=== PATIENT | male | born 1940 | race Caucasian/White ===

== ENCOUNTER → 2022-03-17 | Day surgery (SDC) | payer MEDICARE ==
[~2022-03-17] VITALS: Ht 170.2 cm; Wt 52.9 kg
[~2022-03-17] MED LIST: ALPR0.5T6 PO; AMLO-265 PO; BACL10TA PO; CITA20TA9 PO; HYDR-2769 PO; IV RINGERS,LACTATED 1000ML 1,000 ML IV SCH; LIDOCAINE 2% PF 5 ML VIAL. ONE; MIRT-7 PO; OMEP20CA16 PO; PROPOFOL 10 MG/ML (20ML) VIAL. IV ONE; TRAZ-118 PO; ZOLP10TA4 PO
[2022-03-17 09:11] VITALS: BP 137/64
[2022-03-17 10:17] VITALS: BP 105/57
== END | disposition home or self-care (01) ==
LOC: ENDOS 08:33
PROVIDERS: ATTEND Internal Medicine Gastroenterology
DX: R13.10 Dysphagia, unspecified (principal); K31.89 Other diseases of stomach and duodenum; K21.9 Gastro-esophageal reflux disease without esophagitis; M19.90 Unspecified osteoarthritis, unspecified site; F41.9 Anxiety disorder, unspecified; F32.9 Major depressive disorder, single episode, unspecified; Z79.899 Other long term (current) drug therapy; Z98.890 Other specified postprocedural states
CPT/HCPCS: 43235; 43450; J2704